=== PATIENT | female | born 1995 | race Caucasian/White ===

== ENCOUNTER 2018-01-21 01:50 | Emergency (ER) | payer OTHER ==
--- NOTE | 2018-01-21 02:43 | XR ---
EXAMINATION TYPE: XR Hip LT and AP Pelvis DATE OF EXAM: 01/21/2018 COMPARISON: NONE HISTORY: Hip pain TECHNIQUE: A single AP view of the pelvis is obtained. Two views of the left hip are obtained. FINDINGS: The pelvic ring is intact. Sacroiliac joints appear normal. There is a plate with screws f ixing the intertrochanteric left femur. There is apparent old osteotomy of the subtrochanteric femur. There is mild deformity of the left femoral head consistent with hip dysplasia. Hip joint spaces are fairly normal. There is an IUD. CONCLUSION: No acute abnormality of the left hip. No fracture seen.
--- NOTE | 2018-01-21 02:50 | ED ---
Lower Extremity Injury HPI - General Chief Complaint: Extremity Injury, Lower Stated Complaint: Leg injury Time Seen by Provider: 01/21/18 02:02 Source: patient, RN notes reviewed, old records reviewed Mode of arrival: ambulatory Limitations: no limitations - History of Present Illness Initial Comments: Patient is a 22-year-old female chief complaint of left hip pain. It's been worse over the past few days. Patient has a history of congenital hip disease and had hip surgery many years ago. She reports that she's had pain with ambulation. She does work in a job where she is always on her feet.Denies trauma or falls. - Related Data Home Medications Medication Instructions Recorded Confirmed Acetaminophen Tab [Tylenol] DIRECTED 08/06/14 08/06/14 Previous Rx's Medication Instructions Recorded Acetaminophen-Codeine 300-30mg 1 tab PO Q4H PRN #12 tablet 01/21/18 [Tylenol #3] Cyclobenzaprine [Flexeril] 10 mg PO TID #12 tab 01/21/18 Allergies Allergy/AdvReac Type Severity Reaction Status Date / Time No Known Allergies Allergy Verified 01/21/18 01:57 Review of Systems ROS Statement: Those systems with pertinent positive or pertinent negative responses have been documented in the HPI. ROS Other: All systems not noted in ROS Statement are negative. Past Medical History Additional Past Medical History / Comment(s): hip dysplasia History of Any Multi-Drug Resistant Organisms: None Reported Past Surgical History: Orthopedic Surgery Additional Past Surgical History / Comment(s): left hip Past Psychological History: No Psychological Hx Reported Smoking Status: Current every day smoker Past Alcohol Use History: None Reported Past Drug Use History: None Reported General Exam - General Exam Comments Initial Comments: This is a 22 year old female, no distress. Limitations: no limitations General appearance: alert, in no apparent distress Head exam: Present: atraumatic, normocephalic, normal inspection Eye exam: Present: normal appearance, PERRL, EOMI. Absent: scleral icterus, conjunctival injection, periorbital swelling ENT exam: Present: normal exam, mucous membranes moist Neck exam: Present: normal inspection. Absent: tenderness, meningismus, lymphadenopathy Respiratory exam: Present: normal lung sounds bilaterally. Absent: respiratory distress, wheezes, rales, rhonchi, stridor Cardiovascular Exam: Present: regular rate, normal rhythm, normal heart sounds. Absent: systolic murmur, diastolic murmur, rubs, gallop, clicks GI/Abdominal exam: Present: soft, normal bowel sounds. Absent: distended, tenderness, guarding, rebound, rigid Left Hip exam: Present: normal inspection (evidence of well healed scar from surgery) , full ROM. Absent: tenderness, swelling Upper Leg exam: Present: normal inspection, full ROM Knee exam: Present: normal inspection, full ROM Back exam: Present: normal inspection Neurological exam: Present: alert, oriented X3, CN II-XII intact Psychiatric exam: Present: normal affect, normal mood Course Vital Signs 01/21/18 01/21/18 01:54 03:07 Temperature 97.2 F L 97.4 F L Pulse Rate 74 76 Respiratory 18 16 Rate Blood Pressure 115/76 122/70 O2 Sat by Pulse 100 100 Oximetry Medical Decision Making - Medical Decision Making Patient is a 22-year-old female chief complaint of left hip pain. It's been worse over the past few days. Patient has a history of congenital hip disease and had hip surgery many years ago. Xray shows evidence of hip dysplasia changes over femoral head, as well as evdiecen of her previous surgery with plate and screws. No new changes. Discussed she needs to follow with ortho. Disucssed antiinflammatory medication. - Radiology Data Radiology results: report reviewed No acute abnormality of the left hip, no fracture seen. SI joint are normal. Plate with screws fix in intertrochanteric left femur. Deformity of femoral head with hip dysplasia. Disposition Clinical Impression: Left hip pain, History of congenital disease of hip Disposition: HOME SELF-CARE Condition: Good Additional Instructions: Patient advised to take the medication as prescribed follow-up with primary care provider and community support specialist. Return to the emergency department if any alarming signs or symptoms occur. Prescriptions: Acetaminophen-Codeine 300-30mg [Tylenol #3] 1 tab PO Q4H PRN #12 tablet PRN Reason: Pain Cyclobenzaprine [Flexeril] 10 mg PO TID #12 tab Is patient prescribed a controlled substance at d/c from ED?: Yes If prescribed controlled substance>3 days was MAPS reviewed?: Yes When asked, does pt state using other controlled substances?: No Referrals: Mono Carrington MD [Primary Care Provider] - 1-2 days Emeka Winters MD [STAFF PHYSICIAN] - 1-2 days Time of Disposition: 02:48
[2018-01-21] MEDS ORDERED: ACET/COD 300 MG/30 MG STARTER PACK 6 TAB BTL PO STA (02:51)
[2018-01-21 03:08] VITALS: BP 122/70; PULSE 76; RESP 16; TEMP 97.4
== END 2018-01-21 03:08 | disposition home or self-care (01) ==
LOC: EC 01:50
DX: M25.552 Pain in left hip (principal); Q65.89 Other specified congenital deformities of hip; F17.200 Nicotine dependence, unspecified, uncomplicated; Z98.890 Other specified postprocedural states; Z79.899 Other long term (current) drug therapy
CPT/HCPCS: 73502; 99284

== ENCOUNTER 2018-07-10 18:36 | Emergency (ER) | payer OTHER ==
--- NOTE | 2018-07-10 20:22 | ED ---
General Adult HPI - General Chief complaint: Upper Respiratory Infection Stated complaint: cough, SOB Time Seen by Provider: 07/10/18 20:21 Source: patient Mode of arrival: ambulatory Limitations: no limitations - History of Present Illness Initial comments: This is a previously healthy, vaccinated 22-year-old female who presents the emergency department today for evaluation of cough. Patient reports she developed a cough approximately a week and half ago, she was seen by her primary care physician last week and prescribed azithromycin which she completed on Tuesday. She reports that after taking the azithromycin her nasal congestion has improved significantly however she continues to have a nonproductive cough. Patient describes the cough as dry, nonproductive. She reports it up occasionally she coughs so hard she vomits. She denies any history of similar cough. Any history of asthma or reactive airway disease. She is occur every day smoker. She denies any sick contacts or anybody else in the house with similar symptoms. Patient reports that her pertussis vaccine was updated during her previous 3 years ago. - Related Data Home Medications Medication Instructions Recorded Confirmed Phenylephrine/Dm/Acetaminop/GG 30 ml PO Q6H PRN 07/10/18 07/10/18 [Vicks Dayquil Severe Cold-Flu] Previous Rx's Medication Instructions Recorded Albuterol Inhaler [Ventolin Hfa 1 - 2 puff INHALATION RT-Q6H PRN 07/10/18 Inhaler] #1 inhaler predniSONE [Deltasone] 40 mg PO DAILY 5 Days #10 tablet 07/10/18 Allergies Allergy/AdvReac Type Severity Reaction Status Date / Time No Known Allergies Allergy Verified 07/10/18 20:34 Review of Systems ROS Statement: Those systems with pertinent positive or pertinent negative responses have been documented in the HPI. ROS Other: All systems not noted in ROS Statement are negative. Past Medical History Additional Past Medical History / Comment(s): hip dysplasia History of Any Multi-Drug Resistant Organisms: None Reported Past Surgical History: Orthopedic Surgery Additional Past Surgical History / Comment(s): left hip Past Psychological History: No Psychological Hx Reported Smoking Status: Current every day smoker Past Alcohol Use History: None Reported Past Drug Use History: None Reported General Exam - General Exam Comments Initial Comments: GENERAL: Patient is well-developed and well-nourished. Patient is nontoxic and well- hydrated and is in no distress. HENT: Normocephalic, Atraumatic. EYES: PERRL PULMONARY: Unlabored respirations. Good breath sounds bilaterally. No audible rales rhonchi or wheezing was noted. Mild expiratory wheezing bilaterally CARDIOVASCULAR: There is a regular rate and rhythm without any murmurs gallops or rubs. ABDOMEN: Soft and nontender with normal bowel sounds. SKIN: Skin is clear with no lesions or rashes and otherwise unremarkable. NEUROLOGIC: Patient is alert and oriented x3. Cranial nerves II through XII are grossly intact. MUSCULOSKELETAL: Spontaneous movement of all extremities normal strength and normal gait LYMPHATICS: No significant lymphadenopathy is noted PSYCHIATRIC: Normal psychiatric evaluation. Limitations: no limitations Limitations: no limitations Course Vital Signs 07/10/18 07/10/18 07/10/18 19:07 20:58 21:08 Temperature 98.3 F Pulse Rate 88 60 63 Respiratory 16 Rate Blood Pressure 113/76 O2 Sat by Pulse 97 Oximetry Medical Decision Making - Medical Decision Making The patient was seen and evaluated, history is obtained from the patient patient is an every day smoker with persistent nonproductive cough. No Sirs criteria. No sick Contacts. I suspicion for bronchitis. Chest x-ray with no acute findings Patient reports minor improvement after breathing treatment plan to discharge home with oral steroids and albuterol Again discussed with patient the importance of smoking cessation Provided the patient with a work note to excuse her late arrival at work this evening, and parameters were discussed and the patient was discharged home in stable condition. Disposition Clinical Impression: Bronchitis, Tobacco abuse Disposition: HOME SELF-CARE Condition: Good Instructions: How to Stop Smoking (ED), Upper Respiratory Infection (ED) Prescriptions: Albuterol Inhaler [Ventolin Hfa Inhaler] 1 - 2 puff INHALATION RT-Q6H PRN #1 inhaler PRN Reason: Wheezing predniSONE [Deltasone] 40 mg PO DAILY 5 Days #10 tablet Is patient prescribed a controlled substance at d/c from ED?: No Referrals: Mono Carrington MD [Primary Care Provider] - 1-2 days
--- NOTE | 2018-07-10 20:44 | XR ---
EXAMINATION TYPE: XR chest 2V DATE OF EXAM: 07/10/2018 COMPARISON: NONE HISTORY: Chest pain TECHNIQUE: Frontal and lateral views of the chest are obtained. FINDINGS: Heart and mediastinum are normal. Lungs are clear. Diaphragm is normal. Bony thorax appear s normal. IMPRESSION: Normal chest.
[2018-07-10] MEDS ORDERED: IPRATROPIUM-ALBUTEROL 3 ML NEB INHALATION STA (20:46)
[2018-07-10 21:25] VITALS: RESP 18
[2018-07-10 21:27] VITALS: BP 105/63; PULSE 71; TEMP 98.4
== END 2018-07-10 21:25 | disposition home or self-care (01) ==
LOC: EC 18:36
DX: J40 Bronchitis, not specified as acute or chronic (principal); F17.200 Nicotine dependence, unspecified, uncomplicated
CPT/HCPCS: 71046; 94640; 99285

== ENCOUNTER → 2018-07-26 | Outpatient (CLI) | payer OTHER ==
--- NOTE | 2018-07-26 15:03 | US ---
EXAMINATION TYPE: US pelvic complete DATE OF EXAM: 07/26/2018 COMPARISON: NONE CLINICAL HISTORY: T83.32XA Lost IUD strings,T83.84XA Pain due to IUD. cannot find strings for over a year, cramping, , TECHNIQUE: TA. Transabdominal sonographic images of the pelvis were acquired. patient refused TV approach Date of LMP: 3 years ago when IUD was placed EXAM MEASUREMENTS: Uterus: 6.9 x 4.8 x 3.4 cm Endometrial Stripe: 0.5 cm Right Ovary: 4.1 x 2.5 x 1.7 cm Left Ovary: 3.3 x 2.9 x 2.4 cm 1. Uterus: Anteverted wnl 2. Endometrium: There is an echogenic focus present along the endometrium suggestive of IUD seen with in fundus of endometrium 3. Right Ovary: follicles seen under 1cm 4. Left Ovary: follicles seen under 1cm 5. Bilateral Adnexa: wnl 6. Posterior cul-de-sac: wnl Follicles within the ovaries appear somewhat peripherally oriented on the right and possibly left IMPRESSION: Correlate to exclude Payne-Khris syndrome. IUD may show an abnormal orientation withi n the uterus
== END | disposition home or self-care (01) ==
LOC: RADUSWWP 12:03
PROVIDERS: ATTEND Obstetrics & Gynecology
DX: T83.84XA Pain due to genitourinary prosthetic devices, implants and grafts, initial encounter (principal); T83.32XA Displacement of intrauterine contraceptive device, initial encounter
CPT/HCPCS: 76856